=== PATIENT | male | born 1990 | race Caucasian/White ===

== ENCOUNTER 2024-10-02 20:12 | Emergency (ER) | payer MEDICAID ==
[~2024-10-02] VITALS: Ht 165.1 cm; Wt 76.0 kg
[2024-10-02 20:14] VITALS: O2SAT 100
[2024-10-02] MEDS ORDERED: SODIUM CHLORIDE 0.9% 1,000 ML IV ONE (20:45)
[2024-10-02] MEDS ORDERED: LORAZEPAM 2MG/ML UD SYRINGE IV SCH (20:45)
[2024-10-02] MEDS ORDERED: IBUP-2030 MT (20:52)
[2024-10-02 21:07] LABS: BASOPHILS % 0.2 % (0.0-2.0); EOSINOPHILS % 4.7 % (0.0-5.0); HEMATOCRIT. 40.6 % (42.0-52.0); HEMOGLOBIN. 13.5 g/dL (14.0-18.0); LYMPHOCYTES % 36.9 % (20.0-50.0); MEAN PLATELET VOLUME 9.9 fl (7.4-10.4); MONOCYTES % 12.7 % (2.0-8.0); NEUTROPHILS % 45.5 % (40.0-76.0); PLATELET 196 x1000/uL (130-400); RED BLOOD CELL COUNT 4.42 mill/uL (4.7-6.1); RED CELL DISTRIBUTION WIDTH 13.8 % (11.6-14.6)
[2024-10-02 21:20] LABS: CREATININE 0.9 mg/dL (0.6-1.3); UREA NITROGEN BLOOD 12 mg/dL (9-23)
[2024-10-02] MEDS: IBUPROFEN 800MG TABLET PO ONE (21:20)
[2024-10-02 21:21] LABS: ETHANOL BLOOD < 10 mg/dL (<10)
[2024-10-02] MEDS: ACETAMINOPHEN 325MG TABLET PO ONE (21:22)
[2024-10-02 23:05] VITALS: BP 105/65; PULSE 81; RESP 16; TEMP 36.8; O2SAT 100
== END 2024-10-02 23:21 | disposition home or self-care (01) ==
LOC: ER 20:12
DX: R53.1 Weakness (principal)
CPT/HCPCS: 80048; 80320; 85025; 36415; 99285; J2060; J7030; G0480